=== PATIENT | male | born 1995 | race African-American/Black ===

== ENCOUNTER 2021-03-24 12:48 | Emergency (ER) | payer SELFPAY ==
[2021-03-24 13:09] VITALS: BP 130/80; PULSE 91; TEMP 98.4; BMI 37.3
[2021-03-24 14:54] LABS: EOS % 2.5 % (0-4.5); HEMOGLOBIN 14.1 GM/dL (11.7-16.9); LYMPH % 28.1 % (8-40); MCH 25.2 pg (25.7-33.7); MCHC 33.5 g/dl (32.0-35.9); MEAN CELL VOLUME 75.3 fl (80-96); MEAN PLT VOLUME 7.7 fl (7.5-11.1); MONO % 6.7 % (3.8-10.2); NEUT % 61.7 % (42.8-82.8); PLATELET COUNT 310 10^3/uL (134-434); RBC 5.59 M/mm3 (4.00-5.60); WHITE BLOOD COUNT 7.2 K/mm3 (4.0-10.0)
[2021-03-24 15:21] LABS: CHLORIDE 106 mmol/L (98-107); SODIUM 140 mmol/L (136-145)
[2021-03-24 15:23] LABS: CALCIUM 9.2 mg/dL (8.5-10.1)
[2021-03-24 15:24] LABS: ALBUMIN 4.3 g/dl (3.4-5.0); ANION GAP 3 MMOL/L (8-16); BLOOD UREA NITROGEN 13.1 mg/dL (7-18); CO2 30 mmol/L (21-32); GLUCOSE,RANDOM 76 mg/dL (74-106)
[2021-03-24 15:27] LABS: CREATININE 1.1 mg/dL (0.55-1.3); SGOT/AST 16 U/L (15-37); SGPT/ALT 38 U/L (13-61)
[2021-03-24 15:29] LABS: BILIRUBIN,TOTAL 0.6 mg/dL (0.2-1); TOT PROT 8.2 g/dl (6.4-8.2)
[2021-03-24 15:30] LABS: ALK PHOS 76 U/L (45-117)
== END 2021-03-24 15:59 | disposition home or self-care (01) ==
LOC: JER 12:48
DX: R07.9 Chest pain, unspecified (principal)
CPT/HCPCS: 36415; 71046-TC-FY; 80053; 84484; 85025; 93005; 93010; 99285-25